=== PATIENT | female | born 1945 | race Caucasian/White ===

== ENCOUNTER 2020-10-14 13:17 | Inpatient (IN) | payer MEDICARE, BC ==
--- NOTE | 2020-10-14 13:59 | ED ---
General Adult HPI - General Chief complaint: Abdominal Pain Stated complaint: Abd pain Time Seen by Provider: 10/14/20 13:32 Source: patient, RN/MD (Transferring physician), EMS, RN notes reviewed, old records reviewed (Reviewed report from [facility]) Mode of arrival: EMS Limitations: no limitations - History of Present Illness Initial comments: Patient is a pleasant 75-year-old female presenting to the emergency department with complaints of abdominal discomfort. Onset of symptoms was 3 or 4 days ago. Symptoms have progressively been worsening. Discomfort is more right lower quadrant. No fever. No nausea vomiting. No constipation or diarrhea. Discomfort is mild at this time but moderate to severe with movement and cough. Patient does not have significant cough otherwise. No history of similar symptoms previous. Patient was seen at [facility] and had lab work and computed tomography scan done. - Related Data Allergies Allergy/AdvReac Type Severity Reaction Status Date / Time No Known Allergies Allergy Verified 10/14/20 13:24 Review of Systems ROS Statement: Those systems with pertinent positive or pertinent negative responses have been documented in the HPI. ROS Other: All systems not noted in ROS Statement are negative. Constitutional: Denies: fever Eyes: Denies: eye pain ENT: Denies: ear pain Respiratory: Denies: cough Cardiovascular: Denies: chest pain Endocrine: Denies: fatigue Gastrointestinal: Reports: as per HPI, abdominal pain. Denies: vomiting Genitourinary: Denies: dysuria Musculoskeletal: Denies: back pain Skin: Denies: rash Neurological: Denies: weakness Past Medical History Past Medical History: Hyperlipidemia, Hypertension, Thyroid Disorder History of Any Multi-Drug Resistant Organisms: None Reported Past Surgical History: Section, Orthopedic Surgery, Pacemaker, Uterine Ablation Additional Past Surgical History / Comment(s): Carpal tunnel, Breast biopsy, Past Psychological History: No Psychological Hx Reported Smoking Status: Never smoker Past Alcohol Use History: Occasional Past Drug Use History: None Reported General Exam Limitations: no limitations General appearance: alert, in no apparent distress Head exam: Present: normocephalic Eye exam: Present: normal appearance Neck exam: Present: normal inspection Respiratory exam: Present: normal lung sounds bilaterally Cardiovascular Exam: Present: regular rate, normal rhythm Expanded Peripheral pulses: 2+: Posterior Tibialis (R), Posterior Tibialis (L) GI/Abdominal exam: Present: soft, tenderness (Moderate tenderness umbilical and right lower quadrant), hypoactive bowel sounds. Absent: distended, guarding, rebound, rigid, pulsatile mass Extremities exam: Present: normal inspection Neurological exam: Present: alert Psychiatric exam: Present: normal affect, normal mood Skin exam: Present: normal color Course Vital Signs 10/14/20 13:20 Temperature 97.8 F Pulse Rate 72 Respiratory 20 Rate Blood Pressure 150/87 O2 Sat by Pulse 97 Oximetry Medical Decision Making - Medical Decision Making Patient updated on plan. Case discussed with surgeon, Dr. sanchez who states patient should be admitted to medicine but he will consult. Sound physician group has been - Radiology Data Radiology results: report reviewed (Computed tomography scan from [facility] shows cholelithiasis without cholecystitis. Peritoneal thickening and mesenteric stranding suggesting mild inflammatory changes. Right lower quadrant. Appendix partially visualized. Questionable findings, possible mesenteric infarct.) Disposition Clinical Impression: Abdominal pain Disposition: ADMITTED IP TO THIS HOSP Is patient prescribed a controlled substance at d/c from ED?: No Referrals: Nonstaff,Physician [Primary Care Provider] - 1-2 days Decision Time: 15:11
[2020-10-14] MEDS ORDERED: HYDROmorphone 1 MG/ML 1 ML SYRINGE IVP PRN (15:12)
[2020-10-14] MEDS ORDERED: NALOXONE 0.4 MG/ML 1 ML VIAL IV PRN (15:12)
[2020-10-14] MEDS ORDERED: HYDROmorphone 0.5 MG/0.5 ML SYRINGE IVP PRN (15:12)
[2020-10-14] MEDS: SODIUM CHLORIDE 0.9% 1,000 ML IV SCH (15:25)
[2020-10-14] MEDS ORDERED: ONDANSETRON 4 MG/2 ML VIAL IVP PRN (16:55)
[2020-10-14] MEDS ORDERED: POTASSIUM CHLORIDE ER 20 MEQ TAB.ER PO PRN (16:56)
[2020-10-14] MEDS ORDERED: FUROSEMIDE 20 MG TAB PO PRN (16:56)
--- NOTE | 2020-10-14 17:04 | P.HPIM ---
History of Present Illness H&P Date: 10/14/20 Chief Complaint: Abdominal pain This is a 75-year-old female with past medical history noted below who presented to an outside emergency room with abdominal pain. Patient said that her symptoms started a few days ago with some discomfort in the right lower quadrant. Patient was vague about description of her pain but said that she would be fine unless she presses on her stomach and she would have some discomfort. She said that she also is having pain when she moves around. She denies any nausea or vomiting. Her pain is unrelated to food. She denies any urinary symptoms or hematuria. She said that she has been having normal bowel movement but occasionally she get an urgency to go to the bathroom and watery stool,. Patient decided to see her primary care physician today for those complaints and her PCP referred her to the ER with concern about possible acute appendicitis. Patient's was sent to the ER in [place] where she had a computed tomography scan of the abdomen and pelvis with findings noted below in my assessment and she was referred to our hospital for Gen. surgery consultation. Patient was seen by me in the ER. She appears comfortable. She was asking me if she can go home. She denies any pain at this time. No fevers or chills. Review of Systems Review of system: 14 points review of systems were obtained and were negative except to what were mentioned in the HPI. Past Medical History Past Medical History: Hyperlipidemia, Hypertension, Thyroid Disorder History of Any Multi-Drug Resistant Organisms: None Reported Past Surgical History: Section, Orthopedic Surgery, Pacemaker, Uterine Ablation Additional Past Surgical History / Comment(s): Carpal tunnel, Breast biopsy, Past Psychological History: No Psychological Hx Reported Smoking Status: Never smoker Past Alcohol Use History: Occasional Past Drug Use History: None Reported Medications and Allergies Home Medications Medication Instructions Recorded Confirmed Type Apixaban [Eliquis] 5 mg PO BID 10/14/20 10/14/20 History Furosemide [Lasix] 20 mg PO DAILY PRN 10/14/20 10/14/20 History Levothyroxine Sodium [Synthroid] 125 mcg PO DAILY 10/14/20 10/14/20 History Losartan [Cozaar] 50 mg PO DAILY 10/14/20 10/14/20 History Lovastatin [Mevacor] 40 mg PO DAILY 10/14/20 10/14/20 History Potassium Chloride ER [K-Dur 20] 20 meq PO DAILY PRN 10/14/20 10/14/20 History Sertraline [Zoloft] 50 mg PO DAILY 10/14/20 10/14/20 History Sotalol [Betapace] 120 mg PO BID 10/14/20 10/14/20 History lisinopriL [Prinivil] 20 mg PO HS 10/14/20 10/14/20 History Allergies Allergy/AdvReac Type Severity Reaction Status Date / Time No Known Allergies Allergy Verified 10/14/20 15:25 Physical Exam Vitals: Vital Signs Temp Pulse Resp BP Pulse Ox 10/14/20 13:20 97.8 F 72 20 150/87 97 Intake and Output 10/14/20 10/14/20 10/14/20 06:59 14:59 22:59 Other: Voiding Method Toilet Weight 83.915 kg General: The patient is awake and alert, in no distress Eye: there is normal conjunctiva bilaterally. Neck: The neck is supple, there is no JVD. Cardiovascular: Normal S1-S2, no S3-S4, no murmurs. Respiratory: Lungs clear to auscultation bilaterally Gastrointestinal: Abdomen is soft, nontender Musculoskeletal: There is no pedal edema. Neurological:. Speech is normal. Skin: Skin is warm and dry Assessment and Plan Assessment: This is a 75-year-old female who presented to the hospital with right lower quadrant pain. Patient was evaluated in the ER and admitted for further management of her medical problems noted below. 1. Abdominal pain, exact etiology unclear. Now resolved. CMP, CBC, urinalysis, and lipase normal. I would obtain lactic acid. Gen. surgery consulted for further evaluation. Continue clear liquids for now. Pain control as needed. Computed tomography scan of the abdomen and pelvis at [facility] showed evidence of cholelithiasis without cholecystitis. Right lower quadrant abdominal peritoneal thickening and subjacent mesenteric stranding suggested mild inflammatory changes. The appendix appeared normal though partially visualized. Findings of questionable etiology, perhaps mesenteric infarct. No evidence of diverticulosis. 2. Paroxysmal atrial fibrillation on anticoagulation with Eliquis which I would resume as I doubt patient will require any surgical intervention 3. Essential hypertension, patient had lisinopril and losartan listed on her home medication. I would clarify with her in the morning. Continue with lisinopril for now 4. Other medical problems: Hyperlipidemia, depression. Continue home medication
[2020-10-14] MEDS: APIXABAN 5 MG TAB PO SCH (20:23)
[2020-10-14] MEDS: SOTALOL 120 MG TAB PO SCH (20:23)
[2020-10-14] MEDS: lisinopriL 20 MG TAB PO SCH (20:23)
[2020-10-14] MEDS ORDERED: HEPARIN SODIUM,PORCINE 5,000 UNIT/ML 1 ML VIAL SQ SCH (21:00)
[2020-10-15] MEDS: SODIUM CHLORIDE 0.9% 1,000 ML IV SCH ×2 (05:50→18:10)
[2020-10-15] MEDS: ACETAMINOPHEN TAB 325 MG TAB PO PRN ×2 (06:08→18:17)
[2020-10-15] MEDS: LEVOTHYROXINE 125 MCG TAB PO SCH (06:08)
[2020-10-15 08:53] LABS: Basophils # (A) 0.02 X 10*3/uL (0.00-0.10); Basophils % (A) 0.4 %; Eosinophils # (A) 0.14 X 10*3/uL (0.04-0.35); Eosinophils % (A) 2.9 %; HGB 13.1 g/dL (12.0-15.0); Lymphocytes # (A) 1.36 X 10*3/uL (0.90-5.00); Lymphocytes % (A) 27.7 %; MCH 30.8 pg (27.0-32.0); MCV 96.5 fL (80.0-97.0); Mean Platelet Volume 9.5 fL (9.5-12.2); Monocytes # (A) 0.45 X 10*3/uL (0.20-1.00); Monocytes % (A) 9.2 %; Neutrophils # (A) 2.93 X 10*3/uL (1.80-7.70); Neutrophils % (A) 59.6 %; Platelet Count 270 X 10*3/uL (140-440); RBC 4.25 X 10*6/uL (4.10-5.20); RDW 12.3 % (11.5-14.5); WBC 4.91 X 10*3/uL (4.50-10.00)
[2020-10-15] MEDS: APIXABAN 5 MG TAB PO SCH ×2 (09:47→21:59)
[2020-10-15] MEDS: SERTRALINE 50 MG TAB PO SCH (09:47)
[2020-10-15] MEDS: SOTALOL 120 MG TAB PO SCH ×2 (09:47→22:25)
[2020-10-15] MEDS: ATORVASTATIN 10 MG TAB PO SCH (09:47)
[2020-10-15 10:22] LABS: African American GFR (CKD) 97.5 (60.0-200.0); Albumin 3.6 g/dL (3.80-4.90); Albumin/Globulin Ratio 1.2 (1.60-3.17); Anion Gap 6.1 mmol/L (4.00-12.00); BUN/Creat Ratio 15.71 Ratio (12.00-20.00); Calcium 9.3 mg/dL (8.7-10.3); Carbon Dioxide 27.9 mmol/L (21.6-31.8); Non-African American GFR(CKD) 84.2 (60.0-200.0); Potassium 3.9 mmol/L (3.5-5.5); Total Bilirubin 1.2 mg/dL (0.3-1.2); Total Protein 6.6 g/dL (6.2-8.2)
--- NOTE | 2020-10-15 12:14 | P.GSCN ---
History of Present Illness Consult date: 10/15/20 History of present illness: This is a 75 old female began having right lower quadrant and right mid abdominal pain on Saturday which was 5 days ago. She states the pain has been waxing and waning. There is nothing in particular that makes it better and nothing in particular the makes it worse she is also complaining of multiple liquid bowel movements in a day. She denies any fevers or chills she denies any sick contacts denies eating anything out of the ordinary. She denies any recent hospitalizations or being on antibiotics. She had a CAT scan done at an outside hospital which was read as normal appearing gallbladder normal-appearing appendix without acute appendicitis, there was some fat stranding seen along the right colon and radiology suspected a small mesenteric infarct. Today patient is still having some right lower quadrant tenderness Past Medical History Past Medical History: Atrial Fibrillation, Hyperlipidemia, Hypertension, Thyroid Disorder History of Any Multi-Drug Resistant Organisms: None Reported Past Surgical History: Section, Orthopedic Surgery, Pacemaker, Uterine Ablation Additional Past Surgical History / Comment(s): Carpal tunnel, Breast biopsy,. has [employer] pacemaker. bilateral total knee surgeries 2012 Past Anesthesia/Blood Transfusion Reactions: Postoperative Nausea & Vomiting (PONV) Type of Cardiac Device: Permanent Pacemaker Device Placement Date:: 2015 Past Psychological History: No Psychological Hx Reported Smoking Status: Never smoker Past Alcohol Use History: Occasional Past Drug Use History: None Reported - Past Family History Mother Family Medical History: Cancer Additional Family Medical History / Comment(s): Lymphoma passed age 91 Father Family Medical History: Cancer Additional Family Medical History / Comment(s): Prostates cancer Medications and Allergies Home Medications Medication Instructions Recorded Confirmed Type Apixaban [Eliquis] 5 mg PO BID 10/14/20 10/14/20 History Furosemide [Lasix] 20 mg PO DAILY PRN 10/14/20 10/14/20 History Levothyroxine Sodium [Synthroid] 125 mcg PO DAILY 10/14/20 10/14/20 History Losartan [Cozaar] 50 mg PO DAILY 10/14/20 10/14/20 History Lovastatin [Mevacor] 40 mg PO DAILY 10/14/20 10/14/20 History Potassium Chloride ER [K-Dur 20] 20 meq PO DAILY PRN 10/14/20 10/14/20 History Sertraline [Zoloft] 50 mg PO DAILY 10/14/20 10/14/20 History Sotalol [Betapace] 120 mg PO BID 10/14/20 10/14/20 History lisinopriL [Prinivil] 20 mg PO HS 10/14/20 10/14/20 History Allergies Allergy/AdvReac Type Severity Reaction Status Date / Time No Known Allergies Allergy Verified 10/14/20 15:25 Surgical - Exam Osteopathic Statement: *. No significant issues noted on an osteopathic s tructural exam other than those noted in the History and Physical/Consult. Vital Signs Temp Pulse Resp BP Pulse Ox 97.8 F 72 20 150/87 97 10/14/20 13:20 10/14/20 13:20 10/14/20 13:20 10/14/20 13:20 10/14/20 13:20 - General well developed, well nourished, no distress - Respiratory normal expansion, normal respiratory effort - Cardiovascular Rhythm: regular - Abdomen Soft nondistended mild tenderness palpation right lower quadrant no rebound no rigidity no guarding - Psychiatric oriented to time, oriented to person, oriented to place Results - Labs 10/15/20 06:03 10/15/20 06:03 Abnormal Lab Results - Last 24 Hours (Table) 10/15/20 Range/Units 06:03 Alkaline Phosphatase 13 L (41-126) U/L Albumin 3.60 L (3.80-4.90) g/dL Albumin/Globulin Ratio 1.20 L (1.60-3.17) g/dL Diabetes panel 10/15/20 Range/Units 06:03 Sodium 140 (135-145) mmol/L Potassium 3.9 (3.5-5.5) mmol/L Chloride 106 (96-109) mmol/L Carbon Dioxide 27.9 (21.6-31.8) mmol/L BUN 11.0 (9.0-27.0) mg/dL Creatinine 0.7 (0.6-1.5) mg/dL Glucose 103 (70-110) mg/dL Calcium 9.3 (8.7-10.3) mg/dL AST 18 (13-35) U/L ALT 17 (8-44) U/L Alkaline Phosphatase 13 L (41-126) U/L Total Protein 6.6 (6.2-8.2) g/dL Albumin 3.60 L (3.80-4.90) g/dL Calcium panel 10/15/20 Range/Units 06:03 Calcium 9.3 (8.7-10.3) mg/dL Albumin 3.60 L (3.80-4.90) g/dL Pituitary panel 10/15/20 Range/Units 06:03 Sodium 140 (135-145) mmol/L Potassium 3.9 (3.5-5.5) mmol/L Chloride 106 (96-109) mmol/L Carbon Dioxide 27.9 (21.6-31.8) mmol/L BUN 11.0 (9.0-27.0) mg/dL Creatinine 0.7 (0.6-1.5) mg/dL Glucose 103 (70-110) mg/dL Calcium 9.3 (8.7-10.3) mg/dL Adrenal panel 10/15/20 Range/Units 06:03 Sodium 140 (135-145) mmol/L Potassium 3.9 (3.5-5.5) mmol/L Chloride 106 (96-109) mmol/L Carbon Dioxide 27.9 (21.6-31.8) mmol/L BUN 11.0 (9.0-27.0) mg/dL Creatinine 0.7 (0.6-1.5) mg/dL Glucose 103 (70-110) mg/dL Calcium 9.3 (8.7-10.3) mg/dL Total Bilirubin 1.2 (0.3-1.2) mg/dL AST 18 (13-35) U/L ALT 17 (8-44) U/L Alkaline Phosphatase 13 L (41-126) U/L Total Protein 6.6 (6.2-8.2) g/dL Albumin 3.60 L (3.80-4.90) g/dL Assessment and Plan Assessment: Right lower quadrant abdominal pain Colitis Plan: Patient is having symptoms consistent with a colitis. This could be ischemic versus inflammatory versus infectious. CAT scan performed at outside facility did not show concern for acute appendicitis. I recommend abx, stool studies and continue to monitor the patient if she begins having worsening abdominal pain we could obtain a CAT scan with oral and IV contrast at this facility. No plans for acute surgical intervention at this time. We'll continue to follow
[2020-10-15] MEDS: AMPICILLIN-SULBACTAM 1.5 GM in SODIUM CHLORIDE 0.9% 50 ML IVPB SCH (18:09)
[2020-10-16] MEDS: AMPICILLIN-SULBACTAM 1.5 GM in SODIUM CHLORIDE 0.9% 50 ML IVPB SCH ×3 (01:09→17:14)
[2020-10-16] MEDS: APIXABAN 5 MG TAB PO SCH ×2 (08:18→23:48)
[2020-10-16] MEDS: ATORVASTATIN 10 MG TAB PO SCH (08:18)
[2020-10-16] MEDS: LEVOTHYROXINE 125 MCG TAB PO SCH (08:18)
[2020-10-16] MEDS: SOTALOL 120 MG TAB PO SCH (08:20)
[2020-10-16] MEDS: SERTRALINE 50 MG TAB PO SCH (08:20)
--- NOTE | 2020-10-16 12:39 | P.PN ---
Subjective Progress Note Date: 10/16/20 Patient is feeling better today, abdominal pain improved Objective - Vital Signs Vital signs: Vital Signs Temp 97.8 F 10/16/20 07:00 Pulse 70 10/16/20 08:00 Resp 18 10/16/20 08:00 BP 166/89 10/16/20 07:00 Pulse Ox 96 10/16/20 07:00 Intake & Output 10/15/20 10/16/20 10/16/20 18:59 06:59 18:59 Intake Total 540 240 Balance 540 240 Intake: Oral 540 240 Other: Voiding Method Toilet Toilet # Voids 3 1 # Bowel Movements 3 - Constitutional General appearance: Present: cooperative - Cardiovascular Rhythm: regular - Gastrointestinal Gastrointestinal Comment(s): S/NT/ND - Psychiatric Psychiatric: Present: A&O x's 3 - Labs CBC & Chem 7: 10/15/20 06:03 10/15/20 06:03 Labs: Microbiology - Last 24 Hours (Table) 10/15/20 13:32 Stool Culture - Preliminary Stool Assessment and Plan Assessment: Right lower quadrant abdominal pain Colitis Plan: No plans for any surgical intervention. Pain is significantly iproved per patient today, WBC is normal. Continue augmentin as outpatient for 1 weeks course if patient is going to be DCed home. Instructions to follow up if pain persists or worsens.
--- NOTE | 2020-10-16 16:22 | P.PN ---
Subjective Progress Note Date: 10/16/20 Patient is doing better today. Her stool is more formed. She had 2 bowel movements since yesterday. She still having abdominal pain all over her abdomen. Objective - Vital Signs Vital signs: Vital Signs Temp 97.9 F 10/16/20 14:46 Pulse 68 10/16/20 14:46 Resp 18 10/16/20 14:46 BP 132/76 10/16/20 14:46 Pulse Ox 98 10/16/20 14:46 Intake & Output 10/15/20 10/16/20 10/16/20 18:59 06:59 18:59 Intake Total 540 240 Balance 540 240 Intake: Oral 540 240 Other: Voiding Method Toilet Toilet # Voids 3 1 3 # Bowel Movements 3 1 - Exam General: The patient is awake and alert, in no distress Eye: there is normal conjunctiva bilaterally. Neck: The neck is supple, there is no JVD. Cardiovascular: Normal S1-S2, no S3-S4, no murmurs. Respiratory: Lungs clear to auscultation bilaterally Gastrointestinal: Abdomen is soft, there is moderate tenderness to palpation throughout the abdomen Musculoskeletal: There is no pedal edema. Neurological:. Speech is normal. Skin: Skin is warm and dry - Labs CBC & Chem 7: 10/15/20 06:03 10/15/20 06:03 Labs: Microbiology - Last 24 Hours (Table) 10/15/20 13:32 Stool Culture - Preliminary Stool Assessment and Plan Assessment: This is a 75-year-old female who presented to the hospital with right lower quadrant pain. Patient was evaluated in the ER and admitted for further management of her medical problems noted below. 1. Abdominal pain, thought to be related to acute colitis. Started on IV Unasyn. CMP, CBC, urinalysis, lactic acid, and lipase normal. Gen. surgery consulted for further evaluation. Pain control as needed. C. diff screen negative. Computed tomography scan of the abdomen and pelvis at [facility] wed evidence of cholelithiasis without cholecystitis. Right lower quadrant abdominal peritoneal thickening and subjacent mesenteric stranding suggested mild inflammatory changes. The appendix appeared normal though partially visualized. Findings of questionable etiology, perhaps mesenteric infarct. No evidence of diverticulosis. 2. Paroxysmal atrial fibrillation on anticoagulation with Eliquis which I would resume as I doubt patient will require any surgical intervention 3. Essential hypertension, blood pressure well-controlled 4. Other medical problems: Hyperlipidemia, depression. Continue home medication Discontinue IV fluid Advance diet to regular Anticipate discharge home in the morning
[2020-10-16] MEDS: SODIUM CHLORIDE 0.9% 1,000 ML IV SCH (16:53)
[2020-10-16] MEDS: ACETAMINOPHEN TAB 325 MG TAB PO PRN (17:20)
[2020-10-16] MEDS: lisinopriL 20 MG TAB PO SCH (23:48)
[2020-10-17] MEDS: SOTALOL 120 MG TAB PO SCH ×2 (00:48→08:28)
[2020-10-17 01:42] VITALS: TEMP 98
[2020-10-17] MEDS: AMPICILLIN-SULBACTAM 1.5 GM in SODIUM CHLORIDE 0.9% 50 ML IVPB SCH ×2 (02:07→08:29)
[2020-10-17] MEDS: LEVOTHYROXINE 125 MCG TAB PO SCH (06:21)
[2020-10-17 07:19] VITALS: BP 145/70; PULSE 70; RESP 18
[2020-10-17] MEDS: APIXABAN 5 MG TAB PO SCH (08:28)
[2020-10-17] MEDS: ATORVASTATIN 10 MG TAB PO SCH (08:28)
[2020-10-17] MEDS: SERTRALINE 50 MG TAB PO SCH (08:28)
[2020-10-17] MEDS: ACETAMINOPHEN TAB 325 MG TAB PO PRN (08:28)
--- NOTE | 2020-10-17 09:10 | P.DS ---
Providers Date of admission: 10/14/20 15:13 Expected date of discharge: 10/17/20 Attending physician: Alejandrina Landa Consults: 10/14/20 15:13 Consult Physician Urgent Consulting Provider: Pardeep Heller Consult Reason/Comments: ab pain Do you want consulting provider notified?: Yes Primary care physician: Physician Nonstaff Hospital Course: This is a 75-year-old female who presented to the hospital with right lower quadrant pain. Patient was evaluated in the ER and admitted for further management of her medical problems noted below. 1. Abdominal pain, thought to be related to acute colitis. Started on IV Unasyn. CMP, CBC, urinalysis, lactic acid, and lipase normal. Gen. surgery consulted for further evaluation. C. diff screen negative. Overall condition improved significantly. Patient was able to tolerate regular diet. He'll finish antibiotic course with Augmentin for 7 more days. Computed tomography scan of the abdomen and pelvis at [facility] showed evidence of cholelithiasis without cholecystitis. Right lower quadrant abdominal peritoneal thickening and subjacent mesenteric stranding suggested mild inflammatory changes. The appendix appeared normal though partially visualized. Findings of questionable etiology, perhaps mesenteric infarct. No evidence of diverticulosis. 2. Paroxysmal atrial fibrillation on anticoagulation with Eliquis 3. Essential hypertension, blood pressure well-controlled 4. Other medical problems: Hyperlipidemia, depression. Continue home medication Patient will be discharged home in a stable condition. Advised to discontinue her Lasix for the time being. Follow-up with PCP next week. Patient Condition at Discharge: Fair Plan - Discharge Summary New Discharge Prescriptions: New Amoxic-Pot Clav 875-125Mg [Augmentin 875-125] 1 tab PO BID 7 Days #14 tab Continue Apixaban [Eliquis] 5 mg PO BID Levothyroxine Sodium [Synthroid] 125 mcg PO DAILY lisinopriL [Prinivil] 20 mg PO HS Lovastatin [Mevacor] 40 mg PO DAILY Sertraline [Zoloft] 50 mg PO DAILY Sotalol [Betapace] 120 mg PO BID Discontinued Furosemide [Lasix] 20 mg PO DAILY PRN PRN Reason: Edema Losartan [Cozaar] 50 mg PO DAILY Potassium Chloride ER [K-Dur 20] 20 meq PO DAILY PRN PRN Reason: Edema Discharge Medication List Apixaban [Eliquis] 5 mg PO BID 10/14/20 [History] Levothyroxine Sodium [Synthroid] 125 mcg PO DAILY 10/14/20 [History] Lovastatin [Mevacor] 40 mg PO DAILY 10/14/20 [History] Sertraline [Zoloft] 50 mg PO DAILY 10/14/20 [History] Sotalol [Betapace] 120 mg PO BID 10/14/20 [History] lisinopriL [Prinivil] 20 mg PO HS 10/14/20 [History] Amoxic-Pot Clav 875-125Mg [Augmentin 875-125] 1 tab PO BID 7 Days #14 tab 10/17/20 [Rx] Follow up Appointment(s)/Referral(s): Nonstaff,Physician [Primary Care Provider] - 1-2 days Discharge Disposition: HOME SELF-CARE
[2020-10-17 09:29] LABS: African American GFR (CKD) 102.6 (60.0-200.0); Anion Gap 6.2 mmol/L (4.00-12.00); BUN/Creat Ratio 8.33 Ratio (12.00-20.00); Calcium 8.5 mg/dL (8.7-10.3); Carbon Dioxide 26.8 mmol/L (21.6-31.8); Magnesium 1.8 mg/dL (1.5-2.4); Non-African American GFR(CKD) 88.5 (60.0-200.0); Potassium 3.8 mmol/L (3.5-5.5)
== END 2020-10-17 11:05 | disposition home or self-care (01) | DRG 392 ==
LOC: EC 13:17 → 6NMEDSUR 15:13 → OBSVTOIN 10-16 16:35
PROVIDERS: ADMIT Internal Medicine; ATTEND Internal Medicine
DX: K52.9 Noninfective gastroenteritis and colitis, unspecified (principal); K80.20 Calculus of gallbladder without cholecystitis without obstruction; I48.0 Paroxysmal atrial fibrillation; Z20.822 Contact with and (suspected) exposure to COVID-19; E07.9 Disorder of thyroid, unspecified; E78.5 Hyperlipidemia, unspecified; I10 Essential (primary) hypertension; F32.9 Major depressive disorder, single episode, unspecified; Z79.01 Long term (current) use of anticoagulants; Z79.890 Hormone replacement therapy; Z79.899 Other long term (current) drug therapy; Z95.0 Presence of cardiac pacemaker; Z87.2 Personal history of diseases of the skin and subcutaneous tissue; Z87.42 Personal history of other diseases of the female genital tract; Z87.39 Personal history of other diseases of the musculoskeletal system and connective tissue; Z98.891 History of uterine scar from previous surgery; Z98.890 Other specified postprocedural states; Z80.7 Family history of other malignant neoplasms of lymphoid, hematopoietic and related tissues; Z80.42 Family history of malignant neoplasm of prostate
CPT/HCPCS: 80048; 80053; 83605; 83630; 83690; 83735; 85025; 87045; 87046; 87324; 87635; 99285

== ENCOUNTER → 2023-07-25 | Outpatient (CLI) | payer MEDICARE, BC ==
[2023-07-25 13:02] LABS: African American GFR (CKD) 67 (>60 ml/min/1.73 sqM); Blood Urea Nitrogen 28 mg/dL (7-17); Non-African American GFR(CKD) 58 (>60 ml/min/1.73 sqM)
--- NOTE | 2023-07-25 13:49 | CT ---
EXAMINATION TYPE: CT brain wo/w con DATE OF EXAM: 07/25/2023 COMPARISON: None. HISTORY: facial numbness CT DLP: 0.20 mGycm Automated exposure control for dose reduction was used. CONTRAST: CT scan of the head is performed without and with IV Contrast, patient injected with 100 mL of Isovue 300. FINDINGS: Noncontrast images show no acute intracranial hemorrhage or midline shift. There is mild ve ntricular and sulcal prominence. There is mild low attenuation in the periventricular white matter. T here is 7 mm peripheral ossification left frontal region axial image 33 could reflect osteoma or ossi fied meningioma. Similar finding noted along the anterior falx could reflect calcification or small m eningioma. Postcontrast images show no suspicious enhancing intraparenchymal masses. The globes are i ntact and the visualized sinuses are clear. IMPRESSION: Mild diffuse cerebral atrophy and chronic small vessel ischemic change. Possible tiny men ingiomas. No abnormal enhancing intraparenchymal masses.
== END | disposition home or self-care (01) ==
LOC: RADCTMAIN 12:25
PROVIDERS: ATTEND Psychiatry & Neurology Neurology
DX: G31.9 Degenerative disease of nervous system, unspecified (principal); I67.82 Cerebral ischemia; R29.810 Facial weakness
CPT/HCPCS: 82565; 84520; 70470; 36415; Q9967